=== PATIENT | male | born 1970 | race Caucasian/White ===

== ENCOUNTER 2018-03-14 10:20 | Emergency (ER) | payer BC, OTHER ==
[2018-03-14] MEDS ORDERED: Sulfameth/Trimethoprim DS 800-160mg TAB ONE (11:09)
[2018-03-14] MEDS ORDERED: Clindamycin 150 MG CAP ONE (11:09)
== END 2018-03-14 11:18 | disposition home or self-care (01) ==
LOC: MADERS 10:20
DX: L03.115 Cellulitis of right lower limb (principal); F17.220 Nicotine dependence, chewing tobacco, uncomplicated
CPT/HCPCS: 99282

== ENCOUNTER 2018-08-11 21:31 | Emergency (ER) | payer BC ==
[2018-08-11] MEDS ORDERED: Lidocaine 1% 20 ML MDV ONE (23:30)
[2018-08-12] MEDS ORDERED: Sulfameth/Trimethoprim DS 800-160mg TAB ONE (00:16)
== END 2018-08-12 00:23 | disposition home or self-care (01) ==
LOC: MADERS 21:31
DX: L02.411 Cutaneous abscess of right axilla (principal); F17.220 Nicotine dependence, chewing tobacco, uncomplicated; E66.9 Obesity, unspecified; Z79.899 Other long term (current) drug therapy
CPT/HCPCS: 10061; J2001

== ENCOUNTER 2019-04-22 09:50 | Emergency (ER) | payer BC, SELFPAY ==
[2019-04-22] MEDS ORDERED: Sulfameth/Trimethoprim DS 800-160mg TAB ONE (10:42)
[2019-04-22] MEDS ORDERED: Cephalexin 500 MG CAP ONE (10:42)
[2019-04-22] MEDS ORDERED: traMADol HCl 50 MG TAB ONE (10:51)
== END 2019-04-22 10:57 | disposition home or self-care (01) ==
LOC: MADERS 09:50
DX: L03.115 Cellulitis of right lower limb (principal); E66.9 Obesity, unspecified; F17.220 Nicotine dependence, chewing tobacco, uncomplicated; Z79.899 Other long term (current) drug therapy

== ENCOUNTER 2019-04-26 19:53 | Emergency (ER) | payer SELFPAY ==
[2019-04-26] MEDS ORDERED: Lidocaine 1% 20 ML MDV ONE (20:12)
== END 2019-04-26 20:49 | disposition home or self-care (01) ==
LOC: MADERS 19:53
DX: L02.415 Cutaneous abscess of right lower limb (principal); I11.0 Hypertensive heart disease with heart failure; I50.9 Heart failure, unspecified; E78.5 Hyperlipidemia, unspecified; E78.2 Mixed hyperlipidemia; E66.9 Obesity, unspecified; F17.220 Nicotine dependence, chewing tobacco, uncomplicated
CPT/HCPCS: 10060; J2001

== ENCOUNTER 2019-04-28 09:54 | Emergency (ER) | payer SELFPAY | END 2019-04-28 11:50 | disposition home or self-care (01) | LOC: MADERS 09:54 | DX: Z48.817 Encounter for surgical aftercare following surgery on the skin and subcutaneous tissue (principal); I25.10 Atherosclerotic heart disease of native coronary artery without angina pectoris; I50.9 Heart failure, unspecified; E78.5 Hyperlipidemia, unspecified; E78.2 Mixed hyperlipidemia; E66.9 Obesity, unspecified; F17.220 Nicotine dependence, chewing tobacco, uncomplicated; Z79.899 Other long term (current) drug therapy | CPT/HCPCS: 99282 ==

== ENCOUNTER 2021-02-03 10:33 | Emergency (ER) | payer OTHER, SELFPAY ==
[2021-02-03] MEDS ORDERED: methylPREDNISolone Sod Succ/PF 125 MG/2 ML VIAL ONE (11:01)
[2021-02-03] MEDS ORDERED: Ondansetron ODT 4 MG TAB ONE (11:18)
== END 2021-02-03 11:44 | disposition home or self-care (01) ==
LOC: MADERS 10:33
DX: M54.5 Low back pain (principal); G89.29 Other chronic pain; I50.9 Heart failure, unspecified; E78.5 Hyperlipidemia, unspecified; E78.00 Pure hypercholesterolemia, unspecified; E66.9 Obesity, unspecified
CPT/HCPCS: 72100; 96372; J2930; Q0162

== ENCOUNTER 2024-07-30 15:59 | Emergency (ER) | payer OTHER ==
[2024-07-30 17:46] LABS: #Basophils 0.1 thou/uL (0.0-0.2); #Eosinophils 0.2 thou/uL (0.0-0.7); #Lymphocytes 2.6 thou/uL (1.20-3.40); #Monocytes 0.6 thou/uL (0.11-0.59); #Neutrophils 2.8 thou/uL (1.40-6.50); %Basophils 1.5 % (0.0-1.0); %Eosinophils 2.6 % (0.0-10.0); %Lymphocytes 41.4 % (21.0-51.0); %Monocytes 9.8 % (0.0-10.0); %Neutrophils 44.7 % (42.0-75.0); Hematocrit 47.2 % (42.0-52.0); Hemoglobin 15.1 g/dL (14.0-18.0); Mean Corpuscular HGB CONC 31.9 g/dL (32.0-36.0); Mean Corpuscular Hemoglobin 28.9 pg (27.0-31.0); Mean Corpuscular Volume 90.5 fl (78.0-98.0); Mean Platelet Volume 9.3 fL (7.4-10.4); Platelet Count 197 10x3/uL (130-400); RBC Distribution Width 12.9 % (11.5-14.5); Red Blood Cell (RBC) Count 5.21 mill/uL (4.70-6.10); White Blood Cell (WBC) Count 6.2 10x3/uL (4.8-10.8)
[2024-07-30] MEDS ORDERED: Nitroglycerin 0.4 MG TAB 1 EACH ONE (17:47)
[2024-07-30] MEDS ORDERED: Ipratropium/Albuterol 3 ML NEB ONE (17:47)
[2024-07-30] MEDS ORDERED: Furosemide 40 MG (4 mL) VIAL ONE (17:48)
[2024-07-30] MEDS ORDERED: Aspirin Chewable 81 MG TAB ONE (17:48)
[2024-07-30 18:02] LABS: ALT (SGPT) 36 U/L (8-55); AST (SGOT) 26 U/L (5-34); Albumin 4.1 g/dL (3.5-5.0); Alkaline Phosphatase 48 U/L (40-110); Anion Gap 13 mmol/L (10-20); BUN (Urea Nitrogen) 9 mg/dL (8.4-25.7); Bilirubin, Total 0.5 mg/dL (0.2-1.2); Calc. Creatinine Clearance 0 mL/min (70-130); Carbon Dioxide 25 mmol/L (22-29); Chloride 104 mmol/L (98-107); Estimated GFR 71; Globulin 3.2 g/dL (2.4-3.5); Glucose 138 mg/dL (70-105); Lipase 22 U/L (8-78); Protein, Total 7.3 g/dL (6.0-8.3); Sodium 138 mmol/L (136-145)
[2024-07-30 18:04] LABS: Troponin I Less than 0.010 ng/mL (< 0.028)
[2024-07-30] MEDS ORDERED: Albuterol 200 PUFF (6.7GM INHALER) ONE (19:48)
== END 2024-07-30 19:59 | disposition home or self-care (01) ==
LOC: MADERS 15:59
DX: J45.909 Unspecified asthma, uncomplicated (principal); R07.89 Other chest pain; I11.0 Hypertensive heart disease with heart failure; I50.9 Heart failure, unspecified; E11.9 Type 2 diabetes mellitus without complications; E78.2 Mixed hyperlipidemia; E78.00 Pure hypercholesterolemia, unspecified; F17.220 Nicotine dependence, chewing tobacco, uncomplicated; Z79.899 Other long term (current) drug therapy
CPT/HCPCS: 71046; 80053; 83690; 83880; 84484; 85025; 93005; 94760; 96374; J1940; J7620